=== PATIENT | female | born 1955 ===

== ENCOUNTER → 2018-06-20 | Outpatient (CLI) | payer MEDICARE | END | disposition home or self-care (01) | LOC: RAD 11:07 | PROVIDERS: ATTEND Internal Medicine | DX: Z01.818 Encounter for other preprocedural examination (principal); C50.911 Malignant neoplasm of unspecified site of right female breast | CPT/HCPCS: 93005 ==

== ENCOUNTER → 2018-10-11 | Outpatient (CLI) | payer MEDICARE, OTHER ==
[~2018-10-11] MED LIST: ASPI-496 PO; CARV-39 PO; CITA10TA4 PO; OMEP-110 PO; POTASSIUM PO; SPIR25TA5 PO
== END | disposition home or self-care (01) ==
LOC: CFH 15:17
PROVIDERS: ATTEND Internal Medicine
DX: I08.1 Rheumatic disorders of both mitral and tricuspid valves (principal); C50.911 Malignant neoplasm of unspecified site of right female breast; I11.0 Hypertensive heart disease with heart failure; E78.5 Hyperlipidemia, unspecified; I50.9 Heart failure, unspecified
CPT/HCPCS: 93306

== ENCOUNTER 2018-10-15 09:40 | Day surgery (SDC) | payer MEDICARE, OTHER ==
[~2018-10-15] VITALS: Ht 144.8 cm; Wt 78.4 kg
[2018-10-15] MEDS ORDERED: SODIUM BICARBONATE 4.0%, 5ML ONE (11:31)
[2018-10-15] MEDS ORDERED: LIDOCAINE 1%, 20ML ONE (11:31)
[2018-10-15] MEDS ORDERED: LACTATED RINGERS 1,000 ML IV SCH ×2 (12:19→19:00)
[2018-10-15] MEDS ORDERED: ACETAMINOPHEN 500 MG TABLET PO ONE (12:30)
[2018-10-15] MEDS ORDERED: ONDANSETRON 2MG/ML, 2ML IVPush ONE (12:30)
[2018-10-15] MEDS ORDERED: SCOPOLAMINE PATCH, 1.5MG PATCH.TD72 TD ONE (12:30)
[2018-10-15] MEDS ORDERED: GABAPENTIN 300 MG CAPSULE PO ONE (12:30)
[2018-10-15] MEDS ORDERED: POTASSIUM PO (12:32)
[2018-10-15] MEDS ORDERED: CARV-39 PO (12:32)
[2018-10-15] MEDS ORDERED: CITA10TA4 PO (12:32)
[2018-10-15] MEDS ORDERED: ASPI-496 PO (12:32)
[2018-10-15] MEDS ORDERED: SPIR25TA5 PO (12:32)
[2018-10-15] MEDS ORDERED: OMEP-110 PO (12:32)
[2018-10-15 12:36] VITALS: BP 123/83
[2018-10-15] MEDS ORDERED: MIDAZOLAM 1 MG/ML, 2ML ONE (13:12)
[2018-10-15] MEDS ORDERED: FENTANYL PF 100 MCG/2ML ONE ×3 (13:12→16:50)
[2018-10-15 13:15] LABS: ALANINE AMINOTRANSFERASE 21 U/L (12-78); ALBUMIN 3.7 g/dL (3.4-5.0); ANION GAP 4 mmol/L (5-15); CHLORIDE 110 mmol/L (98-107)
[2018-10-15 13:17] LABS: ALKALINE PHOSPHATASE 124 U/L (45-117); BILIRUBIN,TOTAL 0.5 mg/dL (0.2-1.0); TOTAL PROTEIN 6.8 g/dL (6.4-8.2)
[2018-10-15] MEDS ORDERED: ISOSULFAN BLUE 10 MG/ML, 5ML IV ONE (13:36)
[2018-10-15] MEDS ORDERED: BUPIVACAINE/PF-EPI 0.5% 1:200K ONE (13:36)
[2018-10-15] MEDS ORDERED: LIDOCAINE-MPF 2% ,5ML ONE (14:17)
[2018-10-15] MEDS ORDERED: DEXAMETHASONE 4 MG/ML, 1ML ONE (14:17)
[2018-10-15] MEDS ORDERED: PHENYLEPHRINE 10 MG/ML ONE (14:17)
[2018-10-15] MEDS ORDERED: CEFAZOLIN 1,000 MG ONE (14:17)
[2018-10-15] MEDS ORDERED: SUCCINYLCHOLINE 20 MG/ML, 10ML ONE (14:17)
[2018-10-15] MEDS ORDERED: PROPOFOL 10 MG/ML, 20ML ONE (14:17)
[2018-10-15] MEDS ORDERED: MEPERIDINE/PF 25MG/0.5ML IVPush PRN (17:00)
[2018-10-15] MEDS ORDERED: OXYcodone 5 MG/5 ML ORAL.SOL UDC PO PRN (17:00)
[2018-10-15] MEDS ORDERED: DIPHENHYDRAMINE 50 MG/ML, 1ML IVPush PRN (17:00)
[2018-10-15] MEDS ORDERED: hydrALAzine 20 MG/ML, 1ML IV PRN (17:00)
[2018-10-15] MEDS ORDERED: PROCHLORPERAZINE 5 MG/ML, 2ML IV PRN (17:00)
[2018-10-15] MEDS ORDERED: HYDROmorphone 2 MG/ML, 1ML IVPush PRN (17:00)
[2018-10-15] MEDS: FENTANYL PF 100 MCG/2ML IV PRN ×3 (17:00→17:25)
[2018-10-15] MEDS ORDERED: METOPROLOL 1 MG/ML, 5ML IV PRN (17:00)
[2018-10-15] MEDS ORDERED: LABETALOL 5MG/ML, 20ML IV PRN (17:00)
[2018-10-15] MEDS ORDERED: PROMETHAZINE 25 MG/ML, 1ML IV PRN (17:00)
[2018-10-15] MEDS ORDERED: OXYcodone 5 MG/5 ML ORAL.SOL UDC ONE (17:11)
[2018-10-15] MEDS ORDERED: MEPERIDINE/PF 25MG/ML,1ML ONE (17:26)
[2018-10-15] MEDS ORDERED: ONDANSETRON 2MG/ML, 2ML IVPush PRN (19:00)
[2018-10-15] MEDS ORDERED: HYDROcodone/APAP 7.5-325MG/15ML UDC PO PRN (19:00)
[2018-10-15] MEDS ORDERED: MORPHINE SULFATE 4 MG/ML, 1ML IVPush PRN (19:00)
[2018-10-15 20:02] VITALS: BP 134/77
== END 2018-10-15 21:50 | disposition home or self-care (01) ==
LOC: CFH 09:40 → EDSTATUS 15:00 → 4NOR 18:16 → OUT 21:50
PROVIDERS: ATTEND Surgery
DX: C50.111 Malignant neoplasm of central portion of right female breast (principal); R59.1 Generalized enlarged lymph nodes; J45.909 Unspecified asthma, uncomplicated; I10 Essential (primary) hypertension; K21.9 Gastro-esophageal reflux disease without esophagitis; F32.9 Major depressive disorder, single episode, unspecified; F41.9 Anxiety disorder, unspecified; Z90.710 Acquired absence of both cervix and uterus; Z98.890 Other specified postprocedural states; Z88.8 Allergy status to other drugs, medicaments and biological substances
CPT/HCPCS: 19281; 19301; 36415; 38525; 38792; 76098; 80053; 88305; 88307; 88329; 88333; 93005; A9541; C1729; C9898; J0330; J0690; J1100; J2175; J2250; J2370; J2405; J2704; J3010; J3490; J7120; G0378

== ENCOUNTER → 2018-11-12 | Outpatient (CLI) | payer MEDICARE, OTHER | END | disposition home or self-care (01) | LOC: ROC 07:46 | PROVIDERS: ATTEND Radiology Radiation Oncology | DX: C50.911 Malignant neoplasm of unspecified site of right female breast (principal); F41.9 Anxiety disorder, unspecified; J45.909 Unspecified asthma, uncomplicated; K21.9 Gastro-esophageal reflux disease without esophagitis; E78.5 Hyperlipidemia, unspecified; I10 Essential (primary) hypertension; G47.33 Obstructive sleep apnea (adult) (pediatric); Z95.0 Presence of cardiac pacemaker; Z90.710 Acquired absence of both cervix and uterus; Z90.11 Acquired absence of right breast and nipple | CPT/HCPCS: G0463 ==

== ENCOUNTER → 2019-01-29 | Outpatient (CLI) | payer MEDICARE, OTHER | END | disposition home or self-care (01) | LOC: ROC 09:38 | PROVIDERS: ATTEND Radiology Radiation Oncology | DX: Z08 Encounter for follow-up examination after completed treatment for malignant neoplasm (principal); Z85.3 Personal history of malignant neoplasm of breast | CPT/HCPCS: G0463 ==